=== PATIENT | male | born 1985 | race Two or more races ===

== ENCOUNTER 2017-10-20 00:49 | Emergency (ER) | payer OTHER ==
[~2017-10-20] VITALS: Ht 162.6 cm; Wt 68.0 kg
[~2017-10-20 00:49] MED LIST: LEVSIN/SL0.125 MG PO; PROTONIX40 MG PO
[2017-10-20] MEDS ORDERED: LOSARTAN POTASS50 MG (00:57)
[2017-10-20] MEDS ORDERED: TAMS0.4C PO (06:15)
[2017-10-20] MEDS ORDERED: ULTRAM50 MG PO (06:15)
== END 2017-10-20 13:05 | disposition home or self-care (01) ==
LOC: ER 00:49
DX: N20.1 Calculus of ureter (principal)